=== PATIENT | female | born 1995 | race Caucasian/White ===

== ENCOUNTER 2016-05-10 11:14 | Emergency (ER) | payer OTHER ==
[~2016-05-10] VITALS: Ht 152.4 cm; Wt 81.8 kg
[~2016-05-10 11:14] MED LIST: ACET500C5 PO
[2016-05-10 11:17] VITALS: Ht 152.4 cm; Wt 81.8 kg
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
== END 2016-05-10 13:11 | disposition home or self-care (01) ==
LOC: FTE 11:14
DX: O9A.212 Injury, poisoning and certain other consequences of external causes complicating pregnancy, second trimester (principal); S13.4XXA Sprain of ligaments of cervical spine, initial encounter; V49.40XA Driver injured in collision with unspecified motor vehicles in traffic accident, initial encounter; Z3A.19 19 weeks gestation of pregnancy
CPT/HCPCS: 76805; Z7502